=== PATIENT | male | born 1975 | race Caucasian/White ===

== ENCOUNTER → 2018-12-12 10:03 | Outpatient (CLI) | payer MEDICAID, SELFPAY ==
--- NOTE | 2018-12-12 10:22 | RAD_ITS ---
STUDY: X-RAY - CERVICAL SPINE REASON FOR EXAM: Male, 43 years old. Several day history of neck pain. TECHNIQUE: 5 view(s) of the cervical spine were obtained. COMPARISON: None FINDINGS: Normal anterior atlantoaxial articulation. Normal odontoid process. There is straightening of the normal cervical lordosis. Normal vertebral bodies and endplates. Minimal disc space narrowing at the C5-C6 and C6-C7 levels. Normal visualized intervertebral neuroforamina. The soft tissue structures are unremarkable. RAD/Cerv Spine 4 or 5 Views IMPRESSION: Minimal degree of disc space narrowing at the C5-C6 and C6-C7 levels. Electronically Signed: Kevin Plaza MD at 11:44 EST , Service support ,
== END ==
PROVIDERS: Family Provider Family Medicine; PCP Family Medicine; Referring Provider Family Medicine; Visit Provider Family Medicine
DX: M54.2 Cervicalgia (principal)
CPT/HCPCS: 72050

== ENCOUNTER → 2018-12-18 08:09 | Outpatient (CLI) | payer MEDICAID, SELFPAY ==
[2018-12-18 10:40] LABS: Anion Gap 8 (5-15); BUN 12 mg/dL (7-18); BUN/Creat Ratio 12.1 RATIO (10-20); Calcium,Total 8.8 mg/dL (8.5-10.1); Chloride 107 mmol/L (98-107); Cholesterol 187 mg/dL (200); Creatinine, Serum 0.99 mg/dL (0.70-1.30); EST Glomerular Filtration Rate 88 mL/min (>60); Est Glom Filt Rate - Afr Amer 107 mL/min (>60); Glucose 85 mg/dL (74-106); High Density Lipoprotein 48 mg/dL; Potassium 4.6 mmol/L (3.5-5.1); Sodium Level 142 mmol/L (136-145); Triglycerides 124 mg/dL; Very Low Density Lipoprotein 25 mg/dL (5-40)
== END ==
PROVIDERS: Family Provider Family Medicine; PCP Family Medicine; Referring Provider Family Medicine; Visit Provider Family Medicine
DX: Z00.00 Encounter for general adult medical examination without abnormal findings (principal); M54.2 Cervicalgia
CPT/HCPCS: 36415; 80048; 80061; 97110; 97161

== ENCOUNTER 2019-01-01 08:00 | Outpatient (RCR) | payer MEDICAID, SELFPAY ==
--- NOTE | 2018-12-18 12:59 | HP.PTEVAL_ITS ---
Patient's Visit Information MARIO ALBERTO DUDLEY is a 43 year old M referred to Physical Therapy by Juan Cadet MD with a diagnosis of Neck pain. Date of Evaluation: 12/18/18 Physical Therapist: Odell Osullivan DPT - Visit Plan Frequency: 2x /Week Duration: 4 Weeks Plan: Start with SNAG ext and rotation as tolerated. Add in thoracic spine joint mobs and postural strengthening as tolerated. - Subjective Findings: Pt. is here today for his initial evaluation with diagnosis of neck pain. Pt. 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 He says he broke his neck when this happened and has a disc displacement of 1.5 inches in his neck. Pt. did have a recent xray which showed decreased disc height at C5-C6 and C6-C7. Pt. reports having increased pain occassionally where he is unable to move his neck at all and is stuck in side bent position. Pt. reports not having an episode this date. Pt. Pt. reports no history of dizzinesss, or N/T in either UE. 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 He reports being able to be active, but as an example was sledding and fell over and it really bothered his neck, but was able toplay football yesterday without issues. Pt. reports that his biggest issues is on occassion he has episodes where he is unable to move his neck. Typically reduces with prednisone and muscle relaxors, but does not want to have to take chronically. Pt. is hopeful to reduce symptoms and episodes where his pain is this intense. - Pain neck Pain Intensity (Out of 10): 1 - Objective POSTURE: Pt. has fwrd head posture, increased flexion and C/T junction. Pt. had rounded shoulders. Pt. is able to correct with VCing and manual cueing. PALPATION: Pt. has mild tenderness at R levator scapulea. Pt. has mild tenderness at C5-C7 with hypombility noted at these segments with spring testing. ROM: Pt. has full B shoudler ROM withotu increase in symptoms. CERVICAL SPINE: flexion min loss no pain, ext min loss NE, rotation L min loss tighness reported, rotation R min/mod loss increase NW. MMT: Pt. had 5/5 strength thorughout cervical spine isometrics and 5/5 throughout B shoulders. Pt. did have 4+/5 mid trap and rhomboids. - Special Tests C/S Radiculapathy - Left Upper limb tension test: Negative C/S Radiculapathy - Right Upper limb tension test: Negative C/S Radiculapathy - Left Spurlings: Negative C/S Radiculapathy - Right Spurlings: Negative C/S Radiculapathy - Left Cervical distraction: Negative C/S Radiculapathy - Right Cervical distraction: Negative C/S Radiculapathy - Left Relief test: Negative C/S Radiculapathy - Right Relief test: Negative C/S Radiculapathy - Valsalva: Negative Cervical Sitting: Protrusion - Mechanical Response: No effect Cervical Sitting: Protrusion - Symptoms During Testing: No effect Cervical Sitting: Protrusion - Symptoms After Testing: No effect Cervical Sitting: Retraction - Mechanical Response: No effect Cervical Sitting: Retraction - Symptoms During Testing: Increases Cervical Sitting: Retraction - Symptoms After Testing: No worse Cervical Sitting: Retraction-Extension - Mechanical Response: No effect Cerv Sitting: Retraction-Extension - Symptoms During Testing: No effect Cerv Sitting: Retraction-Extension - Symptoms After Testing: No effect Cervical Sitting: Sidebend Right - Mechanical Response: No effect Cervical Sitting: Sidebend Right - Symptoms During Testing: No effect Cervical Sitting: Sidebend Right - Symptoms After Testing: No effect Cervical Sitting: Sidebend Left - Mechanical Response: No effect Cervical Sitting: Sidebend Left - Symptoms During Testing: No effect Cervical Sitting: Sidebend Left - Symptoms After Testing: No effect Cervical Sitting: Rotation Right - Mechanical Response: No effect Cervical Sitting: Rotation Right - Symptoms During Testing: Increases Cervical Sitting: Rotation Right - Symptoms After Testing: No worse Cervical Sitting: Rotation Left - Mechanical Response: No effect Cervical Sitting: Rotation Left - Symptoms During Testing: Increases Cervical Sitting: Rotation Left - Symptoms After Testing: No worse Cervical Sitting: Flexion - Mechanical Response: No effect Cervical Sitting: Flexion - Symptoms During Testing: No effect Cervical Sitting: Flexion - Symptoms After Testing: No effect - Goals Goal 1:: Pt. to be I with HEP. Goal Time Frame: 4-6 Weeks Goal 2:: Pt. to have increased cervical motion by 25% in all effected ranges. Goal Time Frame: 4-6 Weeks Goal 3:: Pt. to have increased postural strength and proprioception as seen in maintaining improved posture throughout PT session. Goal Time Frame: 4-6 Weeks Goal 4:: Pt. to reports no episodes to increased pain with all work and daily activities. Goal Time Frame: 4-6 Weeks Goal 5:: Pt. to sleep throughout the night without increase in symptoms. - Rehabilitation Potential Physical Therapy Diagnosis: Pt. reports having intermittent neck pain. Pt. had minimal pain this date and no increase in pain this date. PT. reports having episodes that he has increased symptoms, but not present this date. Pt. does have marked limited mobility, mostly into rotation and postural weakness. Pt. would benefit from PT to increase ROM and icnreased postural strength. Rehabilitation Potential: Excellent - Anticipated Interventions Patient/Client Instruction: Educate patient on: Condition, Plan of Care, Risk F actors, Benefits of Fitness Program For the Purpose of:: To improve health and function, To foster healthy habits, To improve decision making, To facilitate caregiver knowledge, To improve self management, To prevent re-injury, To improve ability to perform tasks related to life management, To improve tolerance to ADL's Therapeutic Exercise to Include: Strength training, Power training, Body mechanics, Postural training, Flexibilty training, Passive ROM, Active ROM, Charles Exercises, Scapular Strength/Stabilization For the Purpose of:: To decrease pain, To decrease swelling/inflammation, To increase ROM, To improve nutrient delivery to tissue, To improve health of tissue, To decrease soft tissue restriction, To increase flexibility/ROM Manual Therapy Techniques to Include: Mobilization, Passive ROM, Soft tissue mobilization For the Purpose of:: To decrease pain, To decrease swelling/inflammation, To increase ROM, To improve nutrient delivery to tissue, To increase oxygenation perfusion, To improve muscle performance and motor function Thank you for the opportunity to evaluate your patient. For Medicare and Medicare HMO plans, please review the plan of care and approve it. It will need to be FAXED BACK to us at [phone] for Medicare purposes. For Medicare only, by signing this I certify the plan of care. Please let me know if there are questions or concerns regarding this plan of care. Physician Signature: Date:
--- NOTE | 2019-07-15 10:08 | HP.PT.NRP ---
HP - Discharge Summary (1) - Patient Information MARIO ALBERTO DUDLEY was seen in my office for initial evaluation on 12/18/18. The following Plan of Care was established for this patient: Initial Frequency: 2x /Week Initial Duration: 4 Weeks - Anticipated Interventions Patient/Client Instruction: Educate patient on: Condition, Plan of Care, Risk Factors, Benefits of Fitness Program For the Purpose of:: To improve health and function, To foster healthy habits, To improve decision making, To facilitate caregiver knowledge, To improve self management, To prevent re-injury, To improve ability to perform tasks related to life management, To improve tolerance to ADL's Therapeutic Exercise to Include: Strength training, Power training, Body mechanics, Postural training, Flexibilty training, Passive ROM, Active ROM, Charles Exercises, Scapular Strength/Stabilization For the Purpose of:: To decrease pain, To decrease swelling/inflammation, To increase ROM, To improve nutrient delivery to tissue, To improve health of tissue, To decrease soft tissue restriction, To increase flexibility/ROM Manual Therapy Techniques to Include: Mobilization, Passive ROM, Soft tissue mobilization For the Purpose of:: To decrease pain, To decrease swelling/inflammation, To increase ROM, To improve nutrient delivery to tissue, To increase oxygenation perfusion, To improve muscle performance and motor function This patient was last seen in our office 01/01/19. Pertinent comments regarding their Physical therapy will appear below: Pt. was seen for his cervical spine pain. Pt. was doing well with manual, and stretching. Pt. was doing well at his last visit. He has not been seen in several months and will be DC from PT at this point in time. At this point I will be discontinuing this patient from physical therapy. I would be happy to see this patient again in the future if found appropriate by the physician. Thank you! Odell Osullivan, SOFÍAT
== END 2019-01-01 19:00 | disposition home or self-care (01) ==
LOC: PT 08:00
PROVIDERS: Family Provider Family Medicine; PCP Family Medicine; Referring Provider Family Medicine; Visit Provider Family Medicine
DX: M54.2 Cervicalgia (principal)
CPT/HCPCS: 97012; 97110; 97140; 97161; J2405

== ENCOUNTER 2019-05-20 14:57 | Day surgery (SDC) | payer MEDICAID, SELFPAY ==
[2019-05-06 08:53] VITALS: BMI 24.7
--- NOTE | 2019-05-06 09:21 | HP_ITS ---
Intake Vital Signs 05/06/19 Height 5 ft 10 in 05/06/19 Weight: 172 lb 05/06/19 Body Mass Index (BMI) 24.7 05/06/19 Blood Pressure 105/67 05/06/19 Blood Pressure Location Rt brachial 05/06/19 Respiratory Rate 18 Intake Visit Reasons: Rt Inguinal Hernia Organ Builder Required: No Is patient in pain?: No Allergies No Known Allergies Allergy (Unverified 05/06/19 08:54) Medications multivitamin tablet 1 tab PO DAILY 05/06/19 [History Confirmed 05/06/19] [facility] Surgical History History of surgery on arm (Acute) Family History Mother Asthma Heart disease Grandfather Heart disease Social History (Updated 05/06/19 @ 09:21 by Isaac Shields MD) Smoking Status: Former smoker alcohol intake: current alcohol intake frequency: a few times a month HPI HPI HPI: MARIO ALBERTO DUDLEY, is a 43 M who presents to the office today for HPI HPI Surgical H&P: Yes HPI: MARIO ALBERTO DUDLEY, is a 43 M who presents to the office today for bulge and discomfort in his right inguinal area. Patient states that he was sitting down at the table and had a coughing episode after which he noticed some pain and discomfort in his right lower quadrant area it edition he also noticed a lump when he was standing he states that he has had some chronic discomfort in his right testicle area particularly when it hangs down. He has had no change in his bowel or bladder habits. Was seen by his primary care physician who sending him to me for evaluation and treatment for right inguinal hernia. ROS General General: No weight change, appetite, fatigue, colon cancer, breast cancer or weakness HEENT HEENT: No difficulty swallowing, eye injury, eye surgery, swollen glands or hoarseness Endo Endocrine: No thyroid disease, diabetes mellitus, thyroid cancer, Hair loss, heat intolerance or cold intolerance Skin Skin: No rash or changing moles Breast Breast: No left breast lump, right breast lump, nipple discharge, breast pain, abnormal mammogram, abnormal US or breast enlargement Musc Musculoskeletal: Yes back problems; no arthritis, rheumatoid arthritis, gout or joint pain Cardio Cardiovascular: No murmur, pacemaker, heart disease, atrial fibrillation, high blood pressure, heart attack, heart stent, palpitations, shortness of breat with exertion or chest pain Psych Psychiatric: No depression, anxiety or hearing voices Resp Respiratory: No shortness of breath, Yes sleep apnea, No cough, No COPD, No asthma, No emphysema, No wheezing Gastro Gastrointestinal: Yes abdominal pain, Yes nausea or vomiting, No diarrhea, No constipation, No blood in stool, No acid reflux, Yes hemorrhoids, No ulcers, No gallbladder problem, No black,tarry stools Hakeem Hematologic: No blood thinners, No blood disorders, No bleeding, No anemia, No blood clots Neuro Neurologic: No system reviewed and no additional complaints, except as docu, No as per HPI, No abnormal walking, No abnormal hearing, No abnormal movements, No abnormal speech, No behavioral changes, No burning sensations, No confusion, No seizure-like activity, No unsteadiness, No dizziness, No localized weakness, No frequent falls, No headache(s), No lack of coordination, No loss of vision, No memory loss, No numbness, No other visual disturbances, No radiating pain, No restless legs, No sensory deficit, No fainting, No tingling, No tremor(s), No weakness, No other Exam Const General: no acute distress, well developed, well hydrated Orientation: oriented to person, oriented to place, oriented to time [facility] Head: normocephalic, atraumatic Ears: external ears normal Mouth: moist mucous membranes Eyes Sclera: sclerae normal Pupils: normal by confrontation Neck Neck: no lymphadenopathy noted Neck mass: No Thyroid: thyroid normal, symmetrical Chest Chest palpation & inspection: normal inspection of the chest Breast Palpation: No nipple discharge Resp Effort & Inspection: normal respiratory effort Auscultation: clear to auscultation bilaterally Percussion: percussion normal Cardio Rate: regular rate Rhythm: regular rhythm Heart Sounds: no murmurs GI Palpation: soft, no hepatosplenomegaly, no masses, tender Rectal Exam: other Other: Right inguinal hernias identified on exam. It is easily reducible. There is no left inguinal hernia identified. I cannot palpate any varicoceles.. Rectal exam deferred. Extrem General: normal to inspection, no clubbing, cyanosis or edema Assessment & Plan Problems 1. Right inguinal hernia K40.90 2. Sterilization Z30.2 Plan My plan is to perform a laparoscopic right inguinal hernia repair with mesh. And at the same time we are going to perform a standard vasectomy . The planned surgical procedure was discussed extensively with the patient. The risks, benefits, anticipated outcomes and possible complication were mentioned. The patient understands that all hernia repair surgery has a chance of recurrence and/or chronic post-operative pain. My staff has also explained the procedure in understandable terms and the patient was given the option to take printed material concerning the planned procedure. The patient had the opportunity to ask questions concerning the planned procedure. The patient freely consents to the planned procedure. Coding Level of Care Code Off vis,new,level 3 Diagnoses Right inguinal hernia K40.90 Sterilization Z30.2 05/06/19 0921 <Electronically signed by Isaac jackson MD> Date _ Isaac Shields MD I have re-examined the patient. There are no clinical changes since date of exam.
[2019-05-20] VITALS (7 sets, daily range): BP systolic 95–134; BP diastolic 50–88; PULSE 46–80; RESP 16; TEMP 36.2–37.2; O2SAT 96–100; BMI 24.7
[2019-05-20] MEDS: Cefazolin 2 GM in 0.9% Normal Saline 100 ML IV (15:42)
--- NOTE | 2019-05-20 15:53 | OP.PCM_ITS ---
Problem List (1) Right inguinal hernia Status: Acute Report of Operation Date of Procedure: 05/20/19 Pre-Operative Diagnosis: Right inguinal hernia Post-Operative Diagnosis: Same Surgery/Procedure Performed:: Laparoscopic right inguinal hernia Type of Anesthesia:: General Anesthesiologist: Ramsey Guido Specimen's removed: none Estimated Blood Loss (mL): < 25 cc Fluids Replaced: 1 L LR Description of Procedure: Patient was brought into the operating room. Placed in the supine position. Under excellent general trach intubation the abdomen was sterilely prepped and draped in usual fashion. Local was injected supraumbilically and a curvilinear incision was made. Fascia was grasped with a Allis clamp the varies needle was placed inside the abdomen. Abdomen was insufflated to 15 torr a 10/12 trocar was placed without difficulty. It was flank by 2 #5 trochars both of these placed under direct visualization. Patient was placed in the head down rotated to the left. Underscore the peritoneum on the right. Dissected down to Radu's ligament. Dissected laterally. Dissecting out the cord and vessel structures. And then dissecting further laterally I brought back a indirect inguinal hernia. I fashioned a large 3D max mesh into the wound. I tacked it to Radu's ligament with the pro-tacker and then I tacked it superiorly and laterally with sparing tacks. Reperitonealized area with the pro-tacker. I cover the mesh completely. I inspected the left side no hernia was identified. An ileal inguinal nerve block was performed. Under direct visualization I remove the trochars good hemostasis was noted. Fascia the umbilical port was closed with a [id number] stitch of 0 Vicryl. Skin incisions were closed with some particular stitches of 4-0 Monocryl. Steri-Strips were applied sterile dressings were applied and the patient darryl erated the procedure well. - Admit VTE Documentation VTE Present on Admission: No VTE Mechan Device Prophylaxis: SCD's VTE Pharm Prophylaxis ordered?: No Reason prophylaxis not ordered:: Treatment Not Indicated
--- NOTE | 2019-05-20 15:53 | DCINST_ITS ---
Discharge Diet: Light diet - advance as tolerated Discharge Activity: Return to Normal Activity, May Drive - when you are no longer taking narcotic pain medications., May Shower - with the bandage in place 1-2 days after surgery. Lifting Restrictions: 20 pounds for 8 weeks. Additional Activity Instructions:: Climbing stairs is fine, walking is encouraged. Sitting in bed may be uncomfortable. Sitting up using your lateral muscles (sitting up sideways) is usually more comfortable. Do not drive, work heavy equipment of sign legal documents for 24 hours. If your hernia repair was an ingunial repair, you may have scrotal swelling, an ice pack and/or athletic support can provide more comfort. Pain medications may cause nausea, you should typically eat light foods as you take your pain medications. Pain medications may also cause constipation. If you have difficulty with this, discuss with your doctor. Call your doctor if your incision/area has: Continuous Slow Oozing, Sudden Increased Bleeding, Increased Pain/ Swelling, Increased Redness, Foul Smelling Discharge Call your doctor if you observe: Fever of 101 or Higher Suture Line Care: Avoid Pulling/Pushing, Avoid Pinching/Bending Additional Dressing/Incision Instructions:: Leave the operative bandage on for 2-3 days. When you remove the bandage, leave the steri-strips on place until your follow up appointment or they fall off. Allergies/Adverse Reactions: Allergies No Known Allergies Allergy (Unverified 05/06/19 08:54) Medications to take at Discharge multivitamin tablet 1 tab PO DAILY 05/06/19 Oxycodone HCl/Acetaminophen [Percocet 5/325] 1 - 2 tab PO Q4H PRN PRN 6 Days #30 tab 05/20/19 The following prescriptions were given: Oxycodone HCl/Acetaminophen [Percocet 5/325] 1 - 2 tab PO Q4H PRN PRN 6 Days #30 tab PRN Reason: Pain Prescription Printed Primary Care Physician: Juan Cadet MD [Primary Care Provider] - Test Results: Test results from this visit will be discussed in further detail at your follow- up appointment, if applicable. Please Follow Up With: Isaac Shields MD - [phone] When: Plan to have a follow up appointment in 7 days. Call to schedule.
[2019-05-20] MEDS: Acetaminophen 325 MG Tablet PO (17:40)
[2019-05-20] MEDS: oxyCODONE 5 MG Tablet PO (17:41)
== END 2019-05-20 18:45 | disposition home or self-care (01) ==
LOC: SDC 14:58
PROVIDERS: Family Provider Family Medicine; PCP Family Medicine; Referring Provider Surgery; Visit Provider Surgery
PROC: (CPT 49650; principal; 2019-05-20 16:50)
DX: K40.90 Unilateral inguinal hernia, without obstruction or gangrene, not specified as recurrent (principal); Z87.891 Personal history of nicotine dependence
CPT/HCPCS: 49650; J7120; C1781; J2405

== ENCOUNTER 2020-01-14 21:01 | Emergency (ER) | payer MEDICAID, SELFPAY ==
[2019-05-20 15:13] VITALS: BMI 24.7
[2020-01-14 21:01] VITALS: BP 106/70; PULSE 83; RESP 16; TEMP 36.4; O2SAT 98; BMI 24.7
--- NOTE | 2020-01-14 21:24 | ED.VISSUMM ---
- ER Visit Summary Date of Service: 01/14/20 Chief Complaint: Right small finger laceration History of Present Illness: The patient is a [address] Molina. He is right-hand dominant. He cut his right small finger with a knife just before coming emerge department. Reports he is an aching pain is 3 out of 10 at worst and 1 out of 10 currently. Is worsened by movement relieved by rest. Denies any paresthesias distally. His tetanus is not up-to-date. Physical Examination: Vitals: Stable. Afebrile. General: Well-nourished and well-developed. Head: Normocephalic atraumatic. Neck: Supple, no lymphadenopathy. No JVD. Nontender. Cardiovascular: Regular rate and rhythm. No murmurs. Respiratory: No respiratory distress. Clear to auscultation bilaterally. Abdominal: Soft, nontender, nondistended, normal bowel sounds. No guarding, rebound, or peritoneal signs. Back: Nontender. Extremities: 1 cm flap laceration on the back of his right fifth finger PIP joint. This does not involve the tendon. He is able to extend against resistance at both the PIP and DIP joints. There is no active bleeding. He is neuro vas intact distal wrist.. Skin: Normal color, no rash. Neurologic: Alert and oriented ?3. Cranial nerves II through XII are intact. Normal strength and sensation. Psych: Normal affect. Emergency Department Course and Treatment: Patient had his tetanus updated and he was given a dose of Keflex. A dressing was placed. Treatment Plan: Patient be discharged on 5 days of Keflex. Instructed to follow-up his primary care physician in 3 to 5 days if not improving. Return to the emergency department for any worsening symptoms. Disposition: To home in improved and stable condition. Impression: Laceration right small finger, 1 cm, not repaired. This note was generated with [employer] dictation software. It may contain incorrect words, spelling, and punctuation that were not noted in review of the chart prior to signing ED Disposition - Plan for ED Patient: Disposition: Home or Assisted Living Instructions: LACERATION, Small/superficial, Not sutured Prescriptions: Cephalexin [Keflex] 500 mg PO Q6 #20 cap Prescription Printed Referrals: Juan Cadet MD [Primary Care Provider] - 1 Week if not improving
[2020-01-14] MEDS: Cephalexin 500 MG Capsule PO (21:33)
[2020-01-14] MEDS: Diphth,Pertuss(Acell),Tet Vac 0.5 ML Vial IM (21:34)
[2020-01-14 22:05] VITALS: BP 105/60; PULSE 79; RESP 18; O2SAT 97
== END 2020-01-14 22:00 | disposition home or self-care (01) ==
LOC: ED 21:46
PROVIDERS: Emergency Provider Emergency Medicine; PCP Family Medicine
DX: S61.216A Laceration without foreign body of right little finger without damage to nail, initial encounter (principal); W26.0XXA Contact with knife, initial encounter; Z72.0 Tobacco use
CPT/HCPCS: 90471; 90715; 99283

== ENCOUNTER 2020-10-25 05:04 | Emergency (ER) | payer MEDICAID, SELFPAY ==
[2020-10-25 05:05] VITALS: BP 145/86; PULSE 81; RESP 18; TEMP 36.6; O2SAT 100; BMI 23.3
--- NOTE | 2020-10-25 05:10 | CT_ITS ---
STUDY: CT ABDOMEN AND PELVIS WITHOUT CONTRAST REASON FOR EXAM: Male, 45 years old. GROIN PAIN LEFT SIDE WITH NAUSEA RADIATION DOSAGE (If Supplied By Facility): CTDIvol = ( 6.22 ) mGy, DLP = ( 296.69 ) mGycm TECHNIQUE: Transaxial 2.5 mm images were obtained from the dome of the diaphragm to the symphysis pubis without oral contrast, and without intravenous contrast. Sagittal and coronal images were reconstructed. This examination is limited for the evaluation of gastrointestinal, solid organs and vascular structures due to the lack of intravenous and oral contrast. Individualized dose optimization techniques were used for this CT. COMPARISON: None. FINDINGS: The visualized lung bases are unremarkable. The visualized portions of the heart are within normal limits. Normal liver. Calcified hepatic granulomata. Normal gallbladder and extrahepatic biliary system. There are multiple benign calcified granulomata of the spleen. Normal pancreas. Normal bilateral adrenal glands. Normal right kidney. Normal left kidney. There is no obstructive uropathy, obstructive renal or ureteral calculi. Normal visualized stomach. Normal small intestine. Normal colon. The appendix is visualized and appears normal. Normal abdominal aorta. Normal inferior vena cava. Normal retroperitoneum. Decompressed urinary bladder. Prior right anterior lower pelvic wall plasty. No right or left inguinal hernia. Normal osseous structures. CT/Abdomen/Pelvis without Cont IMPRESSION: There is no obstructive uropathy, obstructive renal or ureteral calculi. There is no appendicitis, ascites, colitis, abscess, collection, perforation or obstruction. Remote granulomatous exposure and postsurgical changes. Electronically Signed: Mary Ellen Kent MD at 6:07 EST , Service support ,
--- NOTE | 2020-10-25 05:10 | ED.DCSUM_ITS ---
History of Present Illness Chief Complaint: Male Pain/Injury Informant: Patient Onset: Days Context: Gradual Onset Timing: Intermittent Current Severity: Moderate Maximum Severity: Moderate Narrative: Patient is an otherwise healthy 45-year-old male noted daily medications that presents to the emergency department with abdominal pain. Patient states for the past 2 or 3 days, he has had intermittent pain in his left lower quadrant referred into his scrotum. He states it feels like I got kicked in the knots. He states that tonight, he had rather significant nausea. He denies any difficulty urinating. He denies any trauma. He states that he did have hernia repair over a year ago on the right and the symptoms did feel similar, but he has not noticed a bulge or lump. Has been moving his bowels without issue. He denies any fevers or chills. He states he is otherwise been in his normal state of health. Prior similar symptoms: No Recent Illness/Hospitalization: No Past Medical History - Allergies and Home Meds Allergies/Adverse Reactions: Allergies No Known Allergies Allergy (Unverified 01/14/20 21:01) Primary Care Physician: Juan Cadet MD [Primary Care Provider] - Prior records reviewed: Yes Past Medical History: None Surgical History: herniorrhaphy Lives: With Family Smoking Status: Current every day smoker Drugs: Marijuana Review of Systems General: Denies: Chills, Fever, Sweats Eyes: Denies: Visual changes - bilaterally, Diplopia ENT: Denies: Rhinorrhea, Sore throat Cardiovascular: Denies: Chest pain, Palpitations Respiratory: Denies: Dyspnea, Cough, Dyspnea on exertion Gastrointestinal: Reports: Abdominal pain, Nausea. Denies: Vomiting, Diarrhea, Melena, Hematochezia Genitourinary: Denies: Dysuria, Hematuria, Frequency Musculoskeletal: Denies: Back pain, Extremity Pain Skin: Denies: Rash, Wounds Neurological: Denies: Headache, Weakness, Numbness Physical Exam Vital Signs/Narrative: Vital Signs Temp Pulse Resp BP Pulse Ox 10/25/20 05:05 97.8 F 81 18 145/86 H 100 Inital Vital Signs reviewed: Yes General: Well nourished, Well developed, No Acute Distress Head: Normocephalic, Atraumatic Eyes: Perrl, EOMI ENT: Moist mucous membranes, No rhinorrhea Neck: Supple, Nontender Cardiovascular: Regular rate, Regular rhythm, No murmurs Respiratory: No distress, CTA bilaterally, Chest nontender Abdomen: Soft, Nontender, Nondistended, Normal bowel sounds : - - Normal genitalia. No testicular tenderness. Normal cremasteric. Back: Nontender, Normal Inspection Extremities: Nontender, No edema Skin: Normal color, No rash Neurological: Alert, Oriented x3, Cranial nerves II-XII grossly intact, Normal Strength, Normal Sensation Psychological: Normal affect, Normal Mood Diagnostic/Tx/Re-eval Clinical Impression(s) from Imaging Studies Abdomen/Pelvis CT 10/25/20 05:10 IMPRESSION: There is no obstructive uropathy, obstructive renal or ureteral calculi. There is no appendicitis, ascites, colitis, abscess, collection, perforation or obstruction. Remote granulomatous exposure and postsurgical changes. Electronically Signed: Mary Ellen Kent MD at 6:07 EST , Service support , Abnormal Lab Results 10/25/20 10/25/20 10/25/20 05:15 05:20 05:20 WBC 10.6 RBC 4.84 Hgb 15.0 Hct 43.3 MCV 89.5 MCH 31.0 MCHC 34.6 RDW Std Deviation 41.6 RDW Coeff of Ar 12.6 Plt Count 249 MPV 9.3 Immature Gran % (Auto) 0.300 Neut % (Auto) 64.4 Lymph % (Auto) 27.9 [place] % (Auto) 4.1 Eos % (Auto) 2.6 Baso % (Auto) 0.7 Absolute Neuts (auto) 6.8 Absolute Lymphs (auto) 2.95 Nucleated RBC % 0 Sodium 143 Potassium 3.5 Chloride 108 H Carbon Dioxide 31.0 Anion Gap 4 L BUN 19 H Creatinine 1.08 Estim Creat Clear Calc 91.06 Est GFR (MDRD) Af Amer 96 Est GFR (MDRD) Non-Af 79 BUN/Creatinine Ratio 17.6 Glucose 97 Calcium 8.9 Urine Color Yellow Urine Clarity Cloudy Urine pH 7.0 Ur Specific [place] 1.015 Urine Protein Negative Urine Glucose (UA) Normal Urine Ketones Negative Urine Occult Blood Negative Urine Nitrite Negative Urine Bilirubin Negative Urine Urobilinogen Normal Ur Leukocyte Esterase Negative Urine RBC 0 SEEN Urine WBC 0 SEEN Ur Squamous Epith Cells 0 SEEN Amorphous Sediment 3+ Urine Bacteria 0 SEEN Urine Mucus 0 SEEN - Medical Decision Making Clinically, the patient symptoms do seem more consistent with kidney stone. He has had intermittent pain into his testicle. He has been nauseated with the pain. Urine does not show infection, but there is some sediment. Screening labs are unremarkable. Patient was given Toradol and Zofran with improvement of his symptoms. He underwent CT of the abdomen and pelvis. There is no definitive obstructing stone. I am not sure if this is just small stone that is causing his pain or something else entirely. His testicles are normal. His exam is reassuring. I do not suspect a dangerous process. I do feel that he is safe for outpatient follow-up. Impression 1. Left lower quadrant pain ED Disposition - Plan for ED Patient: Instructions: ED Kidney Stone w/ Colic Prescriptions: Naproxen [Naprosyn] 500 mg PO BID PRN #20 tab Prescription Printed Ondansetron [Zofran Odt] 4 mg PO Q8H PRN PRN #10 tab PRN Reason: Nausea Prescription Printed Referrals: Juan Cadet MD [Primary Care Provider] -
[2020-10-25 05:20] LABS: Color, Urine Yellow (Yellow); Glucose, Dipstick Normal (Normal); Ketone-Dipstick Negative (Negative); Leukocyte Esterase-Dipstick Negative /ul (Negative); Nitrite-Dipstick Negative (Negative); Occult Blood-Urine Negative /ul (Negative); Protein-Dipstick Negative (Negative); Specific Gravity, Urine 1.015 (1.002-1.030); Urine Bilirubin Dipstick Negative (Negative); Urine Clarity Cloudy (Clear); Urine Urobilinogen Normal (Normal)
[2020-10-25] MEDS: Ketorolac 30 MG/ML Syringe IV (05:20)
[2020-10-25] MEDS: Ondansetron 4 MG/2 ML Vial IV (05:20)
[2020-10-25 05:21] LABS: Bacteria 0 SEEN /hpf (None Seen); Mucous, Urine 0 SEEN /hpf (<or=2+); Red Blood Cells-Urine 0 SEEN /hpf (0-5); Squamous Epithelial Cells - UA 0 SEEN /hpf (0-5); White Blood Cells 0 SEEN /hpf (0-5)
[2020-10-25] MEDS: 0.9% Normal Saline 1,000 ML 250 ML IV (05:21)
[2020-10-25 05:26] LABS: Absolute Lymphocyte Count 2.95 X10^3/uL (0.83-4.51); Absolute Neutrophil Count 6.8 X10^3/uL (2.0-7.7); Basophil# 0.07 X10^3/uL; Basophil% 0.7 % (0-1); Eosinophil# 0.27 X10^3/uL; Eosinophils% 2.6 % (0-5); Hematocrit 43.3 % (40-54); Lymphocyte # 2.95 X10^3/ul (4.0); Lymphocyte % 27.9 % (19-41); Mean Corp Hgb Conc 34.6 g/dL (32-36); Mean Corpuscular Volume 89.5 fL (80-94); Mean Platelet Vol. 9.3 fl (6.2-12.0); Monocyte# 0.43 X10^3/uL; Monocyte% 4.1 % (0-10); NRBC Flagged by Analyzer 0 % (0-5); Neutrophil # 6.83 X10^3/uL (2.7-7.7); Neutrophil % 64.4 % (47-70); Platelet Count 249 K/mm3 (150-450); RBC Distribution Width CV 12.6 % (11.6-14.6); RBC Distribution Width SD 41.6 fl (35.1-43.9); Red Blood Count 4.84 M/mm3 (4.6-6.2); White Blood Count 10.6 K/mm3 (4.4-11.0)
[2020-10-25 05:32] LABS: Amorphous Sediment 3+
[2020-10-25 05:40] LABS: Anion Gap 4 (5-15); BUN 19 mg/dL (7-18); BUN/Creat Ratio 17.6 RATIO (10-20); Calcium,Total 8.9 mg/dL (8.5-10.1); Chloride 108 mmol/L (98-107); Creatinine, Serum 1.08 mg/dL (0.70-1.30); EST Glomerular Filtration Rate 79 mL/min (>60); Est Glom Filt Rate - Afr Amer 96 mL/min (>60); Estimated Creatinine Clearance 91.06 ml/min; Glucose 97 mg/dL (74-106); Potassium 3.5 mmol/L (3.5-5.1); Sodium Level 143 mmol/L (136-145)
== END 2020-10-25 06:20 | disposition home or self-care (01) ==
LOC: ED 05:31
PROVIDERS: Emergency Provider Emergency Medicine; PCP Family Medicine
DX: R10.32 Left lower quadrant pain (principal); F17.200 Nicotine dependence, unspecified, uncomplicated
CPT/HCPCS: 74176; 80048; 81001; 85025; 96361; 96374; 96375; 99282; A4216; J2405

== ENCOUNTER → 2021-07-31 12:04 | Outpatient (CLI) | payer MEDICAID, SELFPAY | PROVIDERS: PCP Family Medicine; Visit Provider Physician Assistant Surgical | DX: Z11.52 Encounter for screening for COVID-19 (principal) | CPT/HCPCS: 87635; U0005; U0003 ==

== ENCOUNTER 2022-06-19 22:06 | Emergency (ER) | payer MEDICAID, SELFPAY ==
[2022-06-19 22:07] VITALS: BP 110/80; PULSE 70; RESP 15; TEMP 36.8; O2SAT 98; BMI 25.2
--- NOTE | 2022-06-19 22:24 | EDS_ITS ---
HPI History of Present Illness Chief Complaint: Abscess Informant: patient and spouse/S.O. Onset/Context/Timing Onset: Days Context: Gradual Onset Timing: Continuous Current Severity: Mild Maximum Severity: Mild Narrative Narrative: Healthy 46-year-old male no seen past medical history. Currently on no medications. States for 4 days he has a abscess on his right medial thigh. Tonight he nicked it with a razor got pus-like material out of it and came in to have it evaluated. He denies any fever or chills. No swollen lymph nodes in his right groin. No prior history. Prior similar symptoms: No Recent Illness/Hospitalization: No PFSH PFSH Medical History no medical history no medical history Allergy/AdvReac Type Severity Reaction Status Date / Time No Known Allergies Allergy Verified 06/19/22 22:28 Family History Mother Asthma Heart disease Grandfather Heart disease Surgical History History of surgery on arm S/P inguinal hernia repair Social History Smoking Status: Current every day smoker tobacco type: cigarettes alcohol intake: current alcohol intake frequency: a few times a month ROS ROS ED ROS Narrative Denies recent illness. Review of Systems ROS Unobtainable: Denies due to encephalopathy Constitutional Constitutional ED: Denies chills Eyes Eyes: Denies blurry vision ENT ENT ED: Denies ear pain Cardiovascular Cardiovascular: Denies chest pain Respiratory/Chest Respiratory/Chest: Denies cough Gastrointestinal Gastrointestinal: Denies abdominal pain Genitourinary Genitourinary ED: Denies dysuria Musculoskeletal Musculoskeletal: Denies arthralgias Integumentary Reports abscess Neurologic Neurologic: Denies headache(s) Psychiatric Psychiatric: Denies anxiety Endocrine Endocrinology: Denies cold intolerance Hematologic/Lymphatic Hematologic/Lymphatic: Reports none Allergic/Immunologic Allergic/Immunologic ED: Denies mouth swelling or tongue swelling EXAM Physical Exam Narrative Exam Narrative: 46-year-old male no acute distress. Vital signs stable afebrile. Does not look septic or toxic. HEENT, neck, heart, lung, abdominal exam unremarkable. Right thigh has about a dime to quarter sized abscess right anterior lateral thigh. No cellulitis. No lymphangitic streaking. He does have a single swollen lymph node in his right groin. I was able to express a small amount of pus. Discussed with patient and will need to be incised and drained. Otherwise exam unremarkable. Const Vital Signs: 06/19/22 22:07 06/19/22 22:29 Temperature 98.2 F 97.7 F L Temperature Source Temporal Oral Pulse Rate 70 65 Respiratory Rate 15 18 Blood Pressure 110/80 108/73 Blood Pressure Mean 90 84 Pulse Ox 98 96 Oxygen Delivery Method Room Air Room Air Positive well nourished and well developed; Negative for obese, cachectic, contractures or unkempt General Appearance ED: well developed and NAD; Negative for unkempt, cachectic, contractures, cyanotic or diaphoretic Nutritional Appearance: Negative for cachectic or obese HEENT Reports moist mucous membranes Negative for trauma or tenderness Eyes PERRL and EOMs intact bilaterally General Eye ED: Negative for pale conjunctiva or scleral icterus Neck no lymphadenopathy, supple and no JVD General: Negative for tenderness Chest Wall inspection of chest normal and palpation of chest normal Resp normal respiratory effort and clear to auscultation bilaterally Effort and Inspection: Negative for retractions Auscultation: Negative for rales, rhonchi or wheezes Cardio regular rate, regular rhythm, S1 normal heart sound, S2 normal heart sound and no murmurs Palpation: Negative for palpable S3 Rate: Negative for bradycardia GI normal to inspection, nondistended, normoactive bowel sounds, non-tender, non- distended and no masses Inspection: Negative for abdominal distention Auscultation: normoactive bowel sounds Palpation: soft; Negative for tender or guarding Back/Spine no CVA tenderness General Back: Negative for CVA tenderness Cervical Spine: Negative for cervical spine tenderness Thoracic Spine / Upper Back: Negative for thoracic spinal tenderness Lumbar Spine / Lower Back: Negative for lumbar spinal tenderness Extremity normal to inspection Extremity Narrative: Except for small right thigh subcu abscess needs I&D. Mildly tender. Small pus. General Extremety ED: Yes tenderness Neuro oriented x3 and CN's II-XII intact bilaterally Sensorium / Orientation: alert; Negative for orientation impaired, lethargic or stuporous Motor Exam: strength 5/5 throughout Psych mental status grossly normal Appearance: Negative for unkempt Attitude: No agitated Mood & Affect: Negative for depressed, anxious or tearful Skin no rashes or lesions noted and no wounds Skin Narrative: Right thigh abscess. Swollen, tender single lymph node right inguinal area. General Skin Exam: Negative for elasticity normal Lesions: No lesion noted Rashes: No rashes noted Trauma: Negative for abrasion Wounds: Negative for wounds noted MDM MDM MDM Narrative Medical decision making narrative: 46-year-old healthy male right thigh abscess. Area will be locally anesthetized with lidocaine. Incised and drained. Be placed on Keflex 5 mg 4 times a day for 10 days. Given his first dose here prior to discharge. Follow-up if not improving. Return if worse. Tylenol and Motrin for pain. Procedures Other Procedures Procedure(s): Right thigh abscess. Local anesthetic with lidocaine. Incised making a 1 to 2 cm incision. Expressed pus. Irrigated the wound. Discussed with patient wound care. Antibiotic therapy. Follow-up if needed. Return if worse. Patient tolerated procedure well. Patient did have a swollen lymph node in his right inguinal area on further examination. Discharge Plan Triage Chief Complaint: Abscess ED Provider: Pietro Macias Dx/Rx/DC Orders Clinical Impression: Abscess Instructions: ED Abscess Incision And Drainage Primary Care Provider: Juan Cadet Referrals: Juan Cadet MD [Primary Care Provider] - 1 Week if not improving Activity Restrictions/Additional Instructions: Warm compresses or hot shower to the area. Antibiotic 4 times a day till gone. Motrin and/or Tylenol for pain. Return if a lot worse or follow-up if not improving. Disposition Disposition: Home, Self Care
[2022-06-19 22:29] VITALS: BP 108/73; PULSE 65; RESP 18; TEMP 36.5; O2SAT 96
[2022-06-19] MEDS: Cephalexin 250 MG Capsule 500 MG PO ×2 (22:43→23:19)
[2022-06-19] MEDS: Lidocaine 1% (20 ml mdv) 20 ML Vial 10 ML INFILT (22:44)
== END 2022-06-19 23:20 | disposition home or self-care (01) ==
PROVIDERS: Emergency Provider Emergency Medicine; PCP Family Medicine; Visit Provider Emergency Medicine
DX: L02.415 Cutaneous abscess of right lower limb (principal); F17.210 Nicotine dependence, cigarettes, uncomplicated
CPT/HCPCS: 99283

== ENCOUNTER → 2022-08-20 | Outpatient (CLI) | payer MEDICAID, SELFPAY ==
[2022-08-20 12:09] LABS: Absolute Lymphocyte Count 2.69 X10^3/uL (0.83-4.51); Absolute Neutrophil Count 4.5 X10^3/uL (2.0-7.7); Basophil# 0.05 X10^3/uL; Basophil% 0.6 % (0-1); Eosinophil# 0.24 X10^3/uL; Hematocrit 43.2 % (40-54); Hemoglobin 14.4 g/dL (13.0-16.5); Lymphocyte # 2.69 X10^3/ul (0.83-4.51); Mean Corp Hgb Conc 33.3 g/dL (32-36); Mean Corpuscular Hgb 30.4 pg (27.0-32.0); Mean Corpuscular Volume 91.1 fL (80-94); Mean Platelet Vol. 10.2 fl (6.2-12.0); Monocyte% 5.1 % (0-10); NRBC Flagged by Analyzer 0 % (0-5); Neutrophil # 4.52 X10^3/uL (2.7-7.7); Platelet Count 267 K/mm3 (150-450); RBC Distribution Width CV 13.2 % (11.6-14.6); RBC Distribution Width SD 44.3 fl (35.1-43.9); Red Blood Count 4.74 M/mm3 (4.6-6.2); White Blood Count 7.9 K/mm3 (4.4-11.0)
[2022-08-20 12:14] LABS: Anion Gap 6 (5-15); BUN 15 mg/dL (7-18); BUN/Creat Ratio 15.2 RATIO (10-20); Calcium,Total 9.2 mg/dL (8.5-10.1); Chloride 109 mmol/L (98-107); Creatinine, Serum 0.99 mg/dL (0.70-1.30); EST Glomerular Filtration Rate 87 mL/min (>60); Est Glom Filt Rate - Afr Amer 105 mL/min (>60); Glucose 87 mg/dL (74-106); Potassium 4.2 mmol/L (3.5-5.1); Sodium Level 142 mmol/L (136-145)
== END | disposition home or self-care (01) ==
LOC: MFPLAB 10:19
PROVIDERS: PCP Family Medicine; Visit Provider Family Medicine
DX: R42 Dizziness and giddiness (principal)
CPT/HCPCS: 36415; 80048; 85025